=== PATIENT | female | born 2000 | race African-American/Black ===

== ENCOUNTER → 2023-06-22 10:04 | Outpatient (BNV) | payer OTHER, SELFPAY ==
--- NOTE | 2023-06-22 10:04 | MHC.OFFVIS ---
Intake Intake Visit Reasons: Amb Documentation HPI HPI Comments History of Present Illness Details Student here for orientation. no major complaints. 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 she would like to get to [facility] on [address] as that is where her baby goes now and she'd like togo there. she gets her ob care at [facility] and [facility]. PMH:dysmenorrhea - she has really bad cramps and clotting during periods and misses school because of it. the only thing that works is excedrin which she uses also for migraines. (discussed caffeine and she laughs because she was sooo jittery the other day and didn;t know why). she states that she is a caffeine addict and when she misses a coffee she can get a headache and she also needs glasses so taht doesn't help anything. otherwise her health is good - eczema - but not from allergies, just happens - does wash her hands a lot and dishwater aggravates (teaching done) she used to take long showers but realized that doesnt help. CONTROL.she has a prescription in the pharmacy for [patches but she hasn't picked it up yet so we explored her desire not to get - that is not a big issue, she mostly wanted it for period managment - she'd like to get on it to stop her period, but feels conflicted about hormone use and feels like people get issues on hormones (mom got ovarian cyst). she doesn't have a lot of sex (partner of almost a year - is ok w/ that - 'he understands ). she prefers other things like painting, and reading. so they don't have a lot of sex, he occasionally wears a condom, but mostly she feels that it wouldnt be terrible if she got . she'd like to get ged first and to be able to live independently (currently at her moms') but that it would be ok MOOD it's ok ...she has anxiety about time but no real struggles w/ her mood. life -it happens don't stress over things you can't control. Her childhood was good. . 4 year old girl Amelia is in good health - consdiered on the spectrum, for limited verbal, sensory issues, food issues - asked if she herself expereiences any of that and she laughs oh negrita states she also has sensory issues and food safe food issues - LIVING: lives w/ her mother and brother and daughter. this situation is good. she seems close to her mother and mother seems to offer good support. [facility] Medical History (Updated 06/22/23 @ 10:16 by ARJUN Mendiola) Primary dysmenorrhea Hx of migraines Family History (Updated 06/22/23 @ 10:18 by ARJUN Mendiola) Mother Diabetes Cardiovascular disease Father History of substance abuse Brother ADHD Daughter Autism spectrum Review of Systems Const Details: Counseling visit: All systems reviewed & are unremarkable except as noted in HPI and below Reports as per HPI Resp Reports as per HPI GI Reports as per HPI Musc Reports as per HPI Neuro Reports as per HPI Psych Reports as per HPI Physical Exam Const General: cooperative, healthy appearing and no acute distress Nutritional Appearance: well nourished Orientation/consciousness: oriented to person Limitations: no limitations HEENT Other: wnl Eyes Other: wnl Chest Other: easy breathing Resp Effort & Inspection: able to speak in complete sentences Skin Other: normal in appearance Neuro General: oriented to person Psych Other: see HPI Mental Status: mental status grossly normal Speech and movement: Clear speech present Attitude: cooperative Thought process: Normal thought process present Assessment & Plan Assessment & Plan (1) Primary dysmenorrhea: Code(s): N94.4 - Primary dysmenorrhea (2) control counseling: Code(s): Z30.09 - Encounter for other general counseling and advice on contraception (3) Hx of migraines: Code(s): Z86.69 - Personal history of other diseases of the nervous system and sense organs Plan PLAN 1) extensivei counseling re: control use, dysmenorrhea prevention and treatment (comparing excedrin to asa/acetamenophin doses w/o caffeine) 2)autism spectrum counseling for both her and daughter 3) assistance w/ Fixed - Parking Tickets and getting PCP 4)general educational support Coding Level of Care Code New Pt Level 4 (30946) Diagnoses Primary dysmenorrhea N94.4 control counseling Z30.09 Hx of migraines Z86.69 Time Spent (min) 50 Comment couseling and coord w/ onsite counselor
--- NOTE | 2023-06-22 10:25 | MHC.OFFVIS ---
Intake Intake Visit Reasons: Amb Documentation HPI HPI Comments History of Present Illness Details I forgot to chart the questionnaires. [facility] Medical History (Updated 06/22/23 @ 10:16 by ARJUN Mendiola) Primary dysmenorrhea Hx of migraines Family History (Updated 06/22/23 @ 10:18 by ARJUN Mendiola) Mother Diabetes Cardiovascular disease Father History of substance abuse Brother ADHD Daughter Autism spectrum Questionnaire PHQ-9 Over the last 2 weeks, how often have you been bothered by any of the following problems? 1. Little interest or pleasure in doing things: several days 2. Feeling down, depressed, or hopeless: not at all 3. Trouble falling or staying asleep, or sleeping too much: several days 4. Feeling tired or having little energy: several days 5. Poor appetite or overeating: not at all 6. Feeling bad about yourself - or that you are a failure or have let yourself or your family down: not at all 7. Trouble concentrating on things, such as reading the newspaper or watching television: not at all 8. Moving or speaking so slowly that other people could have noticed. Or the opposite - being so fidgety or restless that you have been moving around a lot more than usual: not at all 9. Thoughts that you would be better off or of hurting yourself in some way: not at all Total score: 3 Depression Screening Interpretation: Negative (young mother) Depression Screening Done: Yes 02919 - PHQ-9 Billing: Yes Source: Developed by Drs. Kunal Valle, Natali Liriano, Alejandro Broussard and colleagues, with an educational ambrose from As Seen on TV. CRAFFT Screening Tool PART A: In the PAST 12 MONTHS, did you: Drink any alcohol (more than few sips)? (Do not count sips of alcohol taken during family or gnosticist events.): No Smoke any marijuana or hashish?: No Use anything else to get high? (includes illegal drugs, over the counter/prescription drugs, or things that you sniff/flores?): No PART B: If answered YES to ANY above: Have you ever been in a CAR driven by someone (including yourself) who was high or had been using alcohol or drugs?: No Do you ever use alcohol or drugs to RELAX, feel better about yourself, or fit in?: No Do you ever use alcohol or drugs while you are by yourself, or ALONE?: No Do you ever FORGET things while using alcohol or drugs?: No Do your FAMILY or FRIENDS ever tell you that you should cut down on your drinking or drug use?: No Have you ever gotten into TROUBLE while you were using alcohol or drugs?: No CRAFFT Assessment Charge Crafft: MARIANA [id number] Review of Systems Const Details: Counseling visit: All systems reviewed & are unremarkable except as noted in HPI and below Reports as per HPI Resp Reports as per HPI GI Reports as per HPI Musc Reports as per HPI Neuro Reports as per HPI Psych Reports as per HPI Physical Exam Const General: cooperative, healthy appearing and no acute distress Nutritional Appearance: well nourished Orientation/consciousness: oriented to person Limitations: no limitations HEENT Other: wnl Eyes Other: wnl Chest Other: easy breathing Resp Effort & Inspection: able to speak in complete sentences Skin Other: normal in appearance Neuro General: oriented to person Psych Other: see HPI Mental Status: mental status grossly normal Speech and movement: Clear speech present Attitude: cooperative Thought process: Normal thought process present Assessment & Plan Assessment & Plan (1) Primary dysmenorrhea: Code(s): N94.4 - Primary dysmenorrhea (2) control counseling: Code(s): Z30.09 - Encounter for other general counseling and advice on contraception (3) Hx of migraines: Code(s): Z86.69 - Personal history of other diseases of the nervous system and sense organs Plan plan as before (added to visit) - no intervention needed for mood nor substance use Quality Reporting (2019) Depression/Bipolar (159/160/161/177) PHQ-9: Total score: 3 Coding Level of Care Code New Pt Level 4 (27320) Diagnoses Primary dysmenorrhea N94.4 control counseling Z30.09 Hx of migraines Z86.69 Additional Codes CRAFFT Assessment Charge - Divinet: MARIANA [id number] ([id number])
== END ==
PROVIDERS: Visit Provider Nurse Practitioner Family
DX: N94.4 Primary dysmenorrhea (principal); Z30.09 Encounter for other general counseling and advice on contraception; Z86.69 Personal history of other diseases of the nervous system and sense organs; Z13.30 Encounter for screening examination for mental health and behavioral disorders, unspecified
CPT/HCPCS: 96160; 99204

== ENCOUNTER → 2023-10-24 10:36 | Outpatient (BNV) | payer OTHER, SELFPAY ==
--- NOTE | 2023-10-24 10:36 | MHC.OFFVIS ---
Intake Visit Reasons: Amb Documentation HPI Comments Details: student stops in to ask about a lesion on her hand. dx: wart under callus on right base of pinky finger. darkened but seems just callus not actually colored darkly. she states that it started about 2 years ago and started as a callus (I suspect this was actually a wart that looked like callus) and then got bigger. not bothersome at all. [facility] Medical History (Updated 10/24/23 @ 10:45 by ARJUN Mendiola) Primary dysmenorrhea Hx of migraines Family History (Updated 06/22/23 @ 10:18 by ARJUN Mendiola) Mother Diabetes Cardiovascular disease Father History of substance abuse Brother ADHD Daughter Autism spectrum Review of Systems Const All systems reviewed & are unremarkable except as noted in HPI and below Reports as per HPI Resp Reports as per HPI GI Reports as per HPI Musc Reports as per HPI Neuro Reports as per HPI Psych Reports as per HPI Physical Exam Const General: cooperative, healthy appearing and no acute distress Nutritional Appearance: well nourished Orientation/consciousness: oriented to person Limitations: no limitations HEENT Other: wnl Eyes Other: wnl Chest Other: easy breathing Resp Effort & Inspection: able to speak in complete sentences Skin Other: right base of pinky finger w/ 2 cm raised callus w/ what appears to be a wart under neath it Neuro General: oriented to person Psych Other: see HPI Mental Status: mental status grossly normal Speech and movement: Clear speech present Attitude: cooperative Thought process: Normal thought process present Assessment & Plan Assessment & Plan (1) Wart of hand: Code(s): B07.9 - Viral wart, unspecified Category: Medical Plan discussed at length - can scrape and use compound w but if not bother some can just leave it alone and it may clear on it's own Coding Level of Care Code Est Pt Level 2 (69925) Diagnoses Wart of hand B07.9 Time Spent (min) 15 Comment education and counseling
== END ==
PROVIDERS: Visit Provider Nurse Practitioner Family
DX: B07.9 Viral wart, unspecified (principal)
CPT/HCPCS: 99212

== ENCOUNTER 2024-08-29 13:20 | Emergency (ER) | payer OTHER, SELFPAY ==
[2024-08-29 13:40] VITALS: BP 107/55; BP 152/81; PULSE 47; PULSE 56; RESP 16; TEMP 36.4; O2SAT 100; O2SAT 98; BMI 20.8
[2024-08-29 13:53] VITALS: BP 107/55; PULSE 47; RESP 16; TEMP 36.4; O2SAT 100
--- NOTE | 2024-08-29 14:04 | ED_ITS ---
HPI - General Adult General Chief complaint: General Medical Stated complaint: HANGOVER SX S/P DRINKING UNTILEARLY AM PER EMS Time Seen by Provider: 08/29/24 14:00 Source: patient and other (boyfriend at bedside ) Mode of arrival: EMS Limitations: no limitations History of Present Illness ED Provider: MEGAN TAYLOR narrative: 23 year-old female with PMHx of migraines presents to the ED with concerns of headache and abdominal pain after drinking alcohol last night (08/28). She states she drank 2 200ml bottles of tequila last night and woke up this morning with an intense headache, nausea and vomiting. She explains she does not usually drink that much alcohol in a sitting and has never experienced a hangover before. Her boyfriend who is at the bedside reports she has had approximately 15 episodes of clear fluid vomiting with no signs of bloody emesis. She reports taking Tylenol for her headache but vomited immediately after taking the medication. She denies chest pain, SOB, black/bloody stools, diarrhea, weakness or visual changes. Denies chance of . No urinary symptoms. No other complaints or concerns at this time. MD complaint: nausea/vomiting Onset (ago): hour(s) (last night) Location: head and abdomen (nausea/vomiting ) Severity: moderate Quality: constant Pain Consistency: constant Relieving factors: none Exacerbating factors: none Associated symptoms: nausea/vomiting Treatments prior to arrival: other (acetaminophen) Related Data Allergies Allergy/AdvReac Type Severity Reaction Status Date / Time No Known Allergies Allergy Verified 08/29/24 13:52 Review of Systems 2 Review of Systems: Constitutional: No Weight loss, No Fever, No Chills, No Night Sweats, No Fatigue, No Malaise ENT/Mouth: No Hearing loss, No Ear Pain, No Nasal Congestion, No Sinus Pain, No Hoarseness, No sore throat, No Rhinorrhea, No Swallowing Difficulty Eyes: No Eye Pain, No Swelling, No Redness, No Foreign Body, No Discharge, No Vision Changes Cardiovascular: No Chest Pain, No SOB, No Dyspnea on Exertion, No Orthopnea, No Edema, No Palpitations Respiratory: No Cough, No Sputum, No Wheezing, No Smoke Exposure, No Dyspnea Gastrointestinal: + Nausea, + Vomiting, No Diarrhea, No Constipation, No Abdominal pain, No Hematochezia, No Melena Genitourinary: No irregular bleeding, No Dysuria, No Urinary Frequency, No Hematuria, No Urinary Incontinence/retention, No Urgency, No Flank Pain, No Urinary Flow Changes, No Hesitancy Musculoskeletal: No joint pain, No Myalgias, No Joint Swelling Skin: No Skin Lesions, No rash Neuro: No Weakness, No Numbness, No Paresthesias, No Loss of Consciousness, No Dizziness, + Headache Psych: No Anxiety/Panic, No Depression, No SI/HI/AH/VH, No Social Issues, Heme/Lymph: No Bruising, No Bleeding,No Lymphadenopathy Endocrine: No Polyuria, No Polydipsia, No Temperature Intolerance Yes all other systems are reviewed and are negative [facility] Past Medical History Attestation statement: The following information was validated with the patient. Source: old records reviewed Medical History Primary dysmenorrhea Hx of migraines Family History Family History Mother Diabetes Cardiovascular disease Father History of substance abuse Brother ADHD Daughter Autism spectrum Social History Social History Alcohol intake: current Alcohol intake frequency: holidays/special occasions only Alcohol type: hard liquor Smoked in Last 30 Days: Yes Use of substances other than those prescribed or required for medical reasons: Yes Substance Use Type: Marijuana Substance Use Frequency: Daily Last Used Substance: Days (ago) Any prior treatment program specific to substance use: No Advance Directives: No Advance Directives Information Provided: Yes Do you have a plan to hurt others: No Plan Patient : No Physical Exam ED Vital Signs: Vital Signs - 24 hr 08/29/24 13:40 08/29/24 13:53 08/29/24 15:02 Temperature 97.6 F 97.6 F 98.3 F Pulse Rate 47 L 47 L 55 Respiratory Rate 16 16 15 Blood Pressure 107/55 L 107/55 L 106/70 Pulse Oximetry 100 100 98 Oxygen Delivery Method Room Air Room Air Room Air 08/29/24 16:48 08/29/24 16:54 Temperature 98.3 F 98.3 F Pulse Rate 61 61 Respiratory Rate 15 15 Blood Pressure 105/61 105/61 Pulse Oximetry 97 97 Oxygen Delivery Method Room Air Room Air BMI result Body Mass Index 20.8 Appearance: Alert. Oriented X3. No acute distress. Eyes: Pupils equal, round and reactive to light. ENT: Pharynx normal. Neck: Normal inspection. Neck supple. CVS: Bradycardic heart rate and normal rhythm. Pulses normal. Respiratory: No respiratory distress. Breath sounds normal. Abdomen: Soft and nontender. +BS x4 Skin: Skin warm and dry. Normal skin color. Normal skin turgor. No rashes. Extremities: No lower extremity edema. Neuro: Oriented X 3. No motor deficit. No sensory deficit. CN II-XII intact. Medications Administered Discontinued Medications Generic Name Dose Route Start Last Admin Trade Name Freq PRN Reason Stop Dose Admin Lactated Ringer's 1,000 mls @ 999 mls/hr 08/29/24 14:15 08/29/24 16:02 Lr IV 08/29/24 15:15 Infused .Q1H1M MARKOS Infusion Ondansetron HCl 4 mg 08/29/24 14:09 08/29/24 14:32 Ondansetron Hcl 4 Mg/2 Ml Vial IVPUSH 08/29/24 14:10 4 mg ONCE ONE Administration Medical Decision Making Medical Decision Making MDM Narrative: 23 year-old female with PMHx of migraines presents to the ED with concerns of headache and abdominal pain after drinking alcohol last night (08/28). She states she drank 2 200ml bottles of tequila last night and woke up this morning with an intense headache, nausea and vomiting. She explains she does not usually drink that much alcohol in a sitting and has never experienced a hangover before. Her boyfriend who is at the bedside reports she has had approximately 15 episodes of clear fluid vomiting with no signs of bloody emesis. She denies recent illness, sick contacts, chest pain, SOB, black/bloody stools, diarrhea, weakness or visual changes. Patient vital signs reveal bradycardic heart rate at 47 BPM. Patient is stable in no acute distress and is non-toxic appearing. Will obtain labs to observe for electrolyte abnormality and serum HCG to ensure she is not . Will start IV fluids to hydrate patient and give ondansetron for nausea management. At this time suspect patient is experiencing symptoms due to having a hangover from excessive drinking last night. She is not focally tender on abdominal exam, she is not experiencing aura, photophobia or focal neurological deficits with headache. Will rehydrate patient, manage nausea and observe for improvement. COURSE 16:41- Labs reveal elevated AST/ALT 43/32 most likely due to excessive alcohol consumption the night before with no other abnormalities noted. UA revealed concentrated urine with 2+ protein, and small 1+ leukocyte esterase with 3-5 squamous epithelial cells. This is likely due to contaminated specimen but patient will be called if microscopy suggests UTI, patient is asymptomatic. Her headache, nausea and vomiting is much improved after recieving IV fluids, ondansetron and rest. She was eating and drinking without difficulty. She feels comfortable at this time to discharge home for self care. Patient counseled on safe alcohol consumption habits. Differential Diagnosis Differential Diagnoses: The differential diagnosis associated with the presentation includes alcohol intoxication, alcohol withdrawal, migraine, dehydration, electrolyte abnormality, Admission/Observation Consideration of admission/observation: Escalation of care including admission/observation considered Lab Data [facility] Lab Attestation statement: I reviewed the patient's lab results. Patient does have slight leukocytosis at 13.1, likely reactive, see [facility] for further notes. 08/29/24 14:30 08/29/24 15:15 Labs: Lab Results 08/29/24 08/29/24 Range/Units 14:30 15:15 WBC 13.1 H (4.8-10.8) X10*3/uL RBC 4.68 (4.20-5.50) X10*6/uL Hgb 14.3 (12.0-16.0) g/dl Hct 42.1 (37.0-47.0) % MCV 90.0 (80.0-98.0) fL MCH 30.6 (27.0-33.0) pg MCHC 34.0 (31.0-35.0) g/dl RDW 13.6 (11.0-16.0) % Plt Count 321 (160-400) X10*3/uL MPV 8.8 L (9.4-12.3) fL Immature Gran % (Auto) 0.4 (0.0-0.4) % Neut % (Auto) 82.8 H (45-73) % Lymph % (Auto) 12.5 L (20-40) % [place] % (Auto) 3.7 (2-11) % Eos % (Auto) 0.1 (0-4) % Baso % (Auto) 0.5 (0-2) % Lymph # (Auto) 1.6 (1.2-4.9) X10*3/uL [place] # (Auto) 0.5 (0.1-1.2) X10*3/uL Eos # (Auto) 0.0 (0.0-0.4) X10*3/uL Baso # (Auto) 0.1 (0.0-0.2) X10*3/uL Abs Immat Gran (auto) 0.05 H (0.00-0.03) X10*3/uL Absolute Neuts (auto) 10.8 H (2.0-8.3) x10*3/uL Absolute Nucleated RBC 0.000 (0.0-0.012) X10*3/uL Nucleated RBC % (auto) 0.0 (0.0-0.2) /100WBC Sodium 143 (135-145) mmol/L Potassium 4.3 (3.3-5.1) mmol/L Chloride 110 H (96-108) mmol/L Carbon Dioxide 26 (22-29) mmol/L Anion Gap 11 L (12-20) BUN 11 (9-16) mg/dL Creatinine 0.67 (0.5-1.4) mg/dL Estim Creat Clear Calc 118.8 Estimated GFR > 60 Random Glucose 99 (60-115) mg/dL Calcium 9.4 (8.4-10.2) mg/dL Magnesium 1.9 (1.6-2.6) mg/dL Total Bilirubin 0.4 (0.0-1.0) mg/dL AST 43 H (5-31) U/L ALT 32 H (0-31) U/L Alkaline Phosphatase 74 (39-117) U/L Total Protein 6.8 (6.5-8.0) g/dL Albumin 4.1 (3.5-5.0) g/dL Beta HCG, Quant < 2 mIU/mL Urine Color Dark Yellow Urine Appearance Clear Urine pH 7.0 (5.0-9.0) Ur Specific Carpenter >= 1.030 H (1.005-1.025) Urine Protein 100 (2+) H (Neg-Trace) mg/dL Urine Glucose (UA) Negative (Negative) mg/dL Urine Ketones 15 (Negative) mg/dL Urine Blood Negative (Negative) Urine Nitrite Negative (Negative) Ur Leukocyte Esterase Small (1+) H (Negative) Urine RBC 0-2 (0-2) /HPF Urine WBC 0-5 (0-5) /HPF Ur Squamous Epith Cells 3-5 (0-2) /HPF Urine Bacteria Trace (None Seen) Hyaline Casts 0-2 (0-2) /LPF Independent Historian Clinical information obtained from an independent historian. History obtained from or confirmed by: Other (boyfriend at bedside ) External Record Review External record reviewed: Inpatient record Discharge Plan Discharge Clinical Impression: Hangover Qualifiers: Complication of substance-induced condition: uncomplicated Qualified Code(s): F 10.120 - Alcohol abuse with intoxication, uncomplicated Patient Disposition: Home, Self-Care Instructions: Alcohol Intoxication (ED), At-Risk Alcohol Use (ED) Additional Instructions: You were evaluated in the ED today due to nausea, vomiting, and headache due to alcohol consumption. Your labs were reassuring and did not show any abnormalities. Your UA showed small amounts of white blood cells and skin cells. This could be due to a contaminated urine due to skin cells. You will be called by the hospital if you need to be started on antibiotics. Limit your alcohol intake to prevent illness or dependence on alcohol from occurring due to drinking. If any new or worsening symptoms occur not limited to chest pain or shortness for breath, please seek emergent care. Interventions: ED Discharge Assessment Last Done: 08/29/24 16:54 Discharge Date/Time: 08/29/24 17:36 Print Language: Kittitian
[2024-08-29] MEDS: Lactated Ringers 1,000 ML 999 ML IV (14:32)
[2024-08-29] MEDS: ondansetron HCL 4 MG/2 ML VIAL IVPUSH (14:32)
[2024-08-29 14:34] LABS: Basophils Absolute Auto 0.1 X10*3/uL (0.0-0.2); Basophils Percent Auto 0.5 % (0-2); Eosinophils Percent Auto 0.1 % (0-4); Hematocrit 42.1 % (37.0-47.0); Hemoglobin 14.3 g/dl (12.0-16.0); Imm Gran Abs Auto 0.05 X10*3/uL (0.00-0.03); Imm Gran Pct Auto 0.4 % (0.0-0.4); Lymphocytes Absolute Auto 1.6 X10*3/uL (1.2-4.9); Lymphocytes Percent Auto 12.5 % (20-40); MANUAL DIFF FLAG NO; Mean Corpuscular Hemoglobin 30.6 pg (27.0-33.0); Mean Platelet Volume 8.8 fL (9.4-12.3); Monocytes Absolute Auto 0.5 X10*3/uL (0.1-1.2); Monocytes Percent Auto 3.7 % (2-11); Neutrophils Absolute Auto 10.8 x10*3/uL (2.0-8.3); Neutrophils Percent Auto 82.8 % (45-73); Platelet Count 321 X10*3/uL (160-400); Red Blood Count 4.68 X10*6/uL (4.20-5.50); Red Cell Distribution Width 13.6 % (11.0-16.0); White Blood Count 13.1 X10*3/uL (4.8-10.8)
[2024-08-29 14:38] LABS: Appearance Urine Clear; Color Urine Dark Yellow; Glucose Urine UA Negative (Negative); Leukocyte Esterase Urine Small (1+) (Negative); Nitrite Urine Negative (Negative); Specific Gravity - Urine >= 1.030 (1.005-1.025); UMIC TRIGGER UACC YES; Urine Blood Negative (Negative); Urine Ketones 15 mg/dL (Negative); Urine Protein 100 (2+) mg/dL (Neg-Trace)
[2024-08-29 14:46] LABS: Bacteria Urine Trace (None Seen); Hyaline Casts Urine 0-2 /LPF (0-2); RBC Urine 0-2 /HPF (0-2); UACC Culture Trigger YES; WBC Urine 0-5 /HPF (0-5)
[2024-08-29 15:02] VITALS: BP 106/70; PULSE 55; RESP 15; TEMP 36.8; O2SAT 98
[2024-08-29 15:54] LABS: Alanine Aminotransferase 32 U/L (0-31); Albumin Level 4.1 g/dL (3.5-5.0); Anion Gap 11 (12-20); Aspartate Amino Transferase 43 U/L (5-31); Bilirubin Total 0.4 mg/dL (0.0-1.0); Blood Urea Nitrogen 11 mg/dL (9-16); Calcium 9.4 mg/dL (8.4-10.2); Carbon Dioxide 26 mmol/L (22-29); Chloride 110 mmol/L (96-108); Creatinine Clr Calc Pharmacy 118.8; Estimated Glomerular Filt Rate > 60; Glucose Random 99 mg/dL (60-115); HCG Quantitative < 2 mIU/mL; Magnesium 1.9 mg/dL (1.6-2.6); Potassium 4.3 mmol/L (3.3-5.1); Sodium 143 mmol/L (135-145); Total Protein 6.8 g/dL (6.5-8.0)
[2024-08-29 16:23] LABS: Alkaline Phosphatase 74 U/L (39-117)
[2024-08-29 16:48] VITALS: BP 105/61; PULSE 61; RESP 15; TEMP 36.8; O2SAT 97
--- NOTE | 2024-08-29 16:49 | PC.NURSE ---
Patient c/o of n/v zofran given with good effect, Patient states im feeling much better now . Patient received 1 liter IV LR. Patient denies pain at this time. No further vomiting noted
[2024-08-29 16:54] VITALS: BP 105/61; PULSE 61; RESP 15; TEMP 36.8; O2SAT 97
== END 2024-08-29 17:36 | disposition home or self-care (01) ==
PROVIDERS: Physician Assistant Medical; Emergency Provider Emergency Medicine; PCP Nurse Practitioner Pediatrics
DX: F10.120 Alcohol abuse with intoxication, uncomplicated (principal); Y90.9 Presence of alcohol in blood, level not specified; R51.9 Headache, unspecified
CPT/HCPCS: 36415; 80053; 81001; 83735; 84702; 85025; 87086; 87147; 96361; 96374; 99284; J2405; J7120

== ENCOUNTER 2024-12-12 18:43 | Emergency (ER) | payer SELFPAY ==
--- NOTE | 2024-12-12 18:51 | ED.GENADULT ---
HPI - General Adult General Chief complaint: Dental/Oral Stated complaint: tooth pain Time Seen by Provider: 12/12/24 19:00 Source: patient, RN notes reviewed and old records reviewed Mode of arrival: ambulatory Limitations: no limitations History of Present Illness ED Provider: St[facility] narrative: Patient is a 24-year-old female presenting to the ED with complaint of fractured tooth 2 days ago, states she called her dentist, cannot be seen until January. Denies any discharge, drainage, fevers, or difficulty swallowing. Taking ibuprofen without relief. MD complaint: dental pain Onset (ago): day(s) Related Data Previous Rx's ?Medication ?Instructions ?Recorded oxycodone 5 mg tablet 5 mg PO Q8H PRN severe pain (scale 12/12/24 score 7-10) #9 tabs Allergies Allergy/AdvReac Type Severity Reaction Status Date / Time No Known Allergies Allergy Verified 12/12/24 18:55 Review of Systems Review of Systems: As per HPI Yes all other systems are reviewed and are negative Constitutional: Constitutional: Reports as per HPI PMFSH Past Medical History Medical History Primary dysmenorrhea Hx of migraines Family History Family History Mother Diabetes Cardiovascular disease Father History of substance abuse Brother ADHD Daughter Autism spectrum Social History Social History Alcohol intake: current Alcohol intake frequency: holidays/special occasions only Alcohol type: hard liquor Substance Use Type: Marijuana Physical Exam ED Vital Signs: Vital Signs - 24 hr 12/12/24 18:53 Temperature 98.3 F Pulse Rate 59 Respiratory Rate 18 Blood Pressure 135/94 H Pulse Oximetry 98 BMI result Body Mass Index 21.3 Vital signs have been reviewed and appear to be correct. Blood pressure normal. Heart rate normal. Respiratory rate normal. Temperature normal. Oxygen saturation normal. Const General: cooperative, healthy appearing and no acute distress Orientation/consciousness: oriented to person, oriented to place, oriented to time and patient oriented x3 Limitations: no limitations HENMT Head: Yes normocephalic and Yes atraumatic Ears: external ears normal General nose exam: Normal external nose present Face and sinus: Yes face symmetric Mouth: oropharynx normal, moist mucous membranes, no audible dysphonia, no drooling and no trismus Teeth image:  1. fractured tooth, no gingival edema, erythema, drainage or fluctuance Throat: Yes posterior oropharynx normal and Yes uvula midline Eyes Pupils: Equal, round and reactive pupils present Neck Neck: Yes normal visual inspection, Yes no lymphadenopathy and Yes supple Resp Effort & Inspection: normal respiratory effort and able to speak in complete sentences Auscultation: clear to auscultation bilaterally Cardio Rate: regular rate Rhythm: regular rhythm Heart sounds: S1 normal heart sound present and S2 normal heart sound present GI Palpation (GI): Soft to palpation and nontender Auscultation: normoactive bowel sounds General: Yes no CVA tenderness Back/Spine/Pelvis Back: no CVA tenderness Skin General skin exam: elasticity normal and turgor normal Neuro General: oriented to person, oriented to place, oriented to time, patient oriented x3, moves all extremities, no focal motor deficits and CN's II-XI intact bilaterally Cranial nerves: Yes Equal, round and reactive pupils present Cognition (Neuro): normal cognition Extrem General: Yes full ROM, Yes no pedal edema and Yes no calf tenderness Psych Mental Status: mental status grossly normal Affect: normal affect Thought process: Normal thought process present Medical Decision Making Medical Decision Making MDM Narrative: Patient is a 24-year-old female presenting to the ED with complaint of fractured tooth 2 days ago, states she called her dentist, cannot be seen until January. On exam patient is awake, A+Ox3, VS WNL, afebrile, normal neurological exam without focal deficits, physical exam findings as above. Given reported symptoms and physical exam findings, initial differential includes but is not limited to toothache, fractured tooth. Do not suspect infection, abscess. Will send prescription for oxycodone for severe pain, patient provided with list of local dental clinics and advised to call several offices to see who can give her the soonest appointment. Return precautions discussed. Patient verbalized understanding of and agreement with plan. Differential Diagnosis Differential Diagnoses: The differential diagnosis associated with the presentation includes As per MDM Admission/Observation Consideration of admission/observation: Escalation of care including admission/observation considered Patient would have been admitted to the hospital had their clinical presentation warranted hospital admission. External Record Review External record reviewed: Inpatient record, Office record and Outpatient record Prescription Management I considered prescription management with: Pain Medication Discharge Plan Discharge Clinical Impression: Toothache, Fracture of tooth Patient Disposition: Home, Self-Care Instructions: Toothache (ED) Additional Instructions: You were evaluated in the emergency department today for complaint of dental pain and fractured tooth. IT IS IMPORTANT THAT YOU FOLLOW UP WITH A DENTIST. Call the dentists on the list of dental clinics to see who has the soonest appointment. We recommend that you take 600 mg of ibuprofen or 650 mg Tylenol every 6 hours as needed for pain. If necessary, you can alternate these medications every 3 hours. For example, at 9:00 a.m. take Tylenol, then at noon take ibuprofen, then at 3:00 p.m. take Tylenol, etc.. DO NOT TAKE MORE THAN THAT. You are being prescribed a short course of oxycodone for severe pain. Do not take this medication with alcohol as it can cause excessive drowsiness. Return to the emergency department if you develop worsening pain, swelling, difficulty swallowing, difficulty breathing, fever, or any other concerning symptoms. Call or visit any of the clinics below to establish care with a dentist: [facility] [address] [place] [address] [facility] [[email or web address] [address] [facility], [address] [address] [place] [id number] [facility] [address] [place] [id number] [facility] [address] [place] [address] [address] [place] [address] Prescriptions: New oxycodone 5 mg tablet 5 mg PO Q8H PRN (Reason: severe pain (scale score 7-10)) Qty: 9 0RF Rx Instructions: Partial Fill upon patient request. Print Language: Citizen Of [place]
[2024-12-12 18:53] VITALS: BP 135/94; PULSE 59; RESP 18; TEMP 36.8; O2SAT 98; BMI 21.3
[2024-12-12 19:07] VITALS: BP 135/94; PULSE 59; RESP 18; TEMP 36.8; O2SAT 98
== END 2024-12-12 19:08 | disposition home or self-care (01) ==
PROVIDERS: Emergency Provider Emergency Medicine; PCP Nurse Practitioner Pediatrics
DX: S02.5XXA Fracture of tooth (traumatic), initial encounter for closed fracture (principal); X58.XXXA Exposure to other specified factors, initial encounter; Y93.89 Activity, other specified; Y92.89 Other specified places as the place of occurrence of the external cause; Y99.8 Other external cause status
CPT/HCPCS: 99282; 99283

== ENCOUNTER 2024-12-13 01:58 | Emergency (ER) | payer SELFPAY ==
[2024-12-13 02:04] VITALS: BP 154/93; PULSE 54; RESP 20; TEMP 36.7; O2SAT 99; BMI 21.3
--- NOTE | 2024-12-13 04:30 | ED_ITS ---
HPI - Dental/Oral General Chief complaint: Dental/Oral Stated complaint: tooth pain- seen yesterday for same thing Time Seen by Provider: 12/13/24 04:29 Source: patient Mode of arrival: ambulatory Limitations: no limitations History of Present Illness ED Provider: [facility] HPI Narrative: The patient is a 24-year-old female presenting to the ED reporting she was seen here yesterday for evaluation of pain in the left lower molar due to a cracked tooth. Patient was prescribed oxycodone and advised to follow up with her dentist, patient states she is unable to see a dentist until January, returns to the ED with severe pain stating she attempted the oxycodone but felt no relief, patient reports she has also been attempting ibuprofen and Excedrin migraine. The patient denies associated fever/chills, nausea, vomiting, or other acute complaint. Related Data Previous Rx's ?Medication ?Instructions ?Recorded oxycodone 5 mg tablet 5 mg PO Q8H PRN severe pain (scale 12/12/24 score 7-10) #9 tabs acetaminophen 500 mg capsule 1,000 mg (2 x 500 mg) PO .q8 PRN 12/13/24 fever or pain #30 caps amoxicillin 875 mg-potassium 1 tab PO Q12H #20 tabs clavulanate 125 mg tablet ibuprofen 600 mg tablet 600 mg PO Q8H PRN fever or p ain 12/13/24 #30 tabs Allergies Allergy/AdvReac Type Severity Reaction Status Date / Time No Known Allergies Allergy Verified 12/13/24 02:08 Review of Systems Review of Systems: Yes all other systems are reviewed and are negative [facility] Past Medical History Medical History Primary dysmenorrhea Hx of migraines Family History Family History Mother Diabetes Cardiovascular disease Father History of substance abuse Brother ADHD Daughter Autism spectrum Social History Social History Alcohol intake: current Alcohol intake frequency: holidays/special occasions only Alcohol type: hard liquor Substance Use Type: Marijuana Advance Directives: No Do you have a plan to hurt others: No Plan Physical Exam Vital Signs: Vital Signs: Last Vital Signs Temp 98.1 F 12/13/24 04:46 Pulse 54 12/13/24 04:46 Resp 20 12/13/24 04:46 BP 154/93 H 12/13/24 04:46 Pulse Ox 99 12/13/24 04:46 O2 Del Method Room Air 12/13/24 04:46 BMI result Body Mass Index 21.3 CONSTITUTIONAL: The patient appears non-toxic, well nourished and in no acute distress. Vital signs as documented. HEAD: Atraumatic, normocephalic. EYES: EOMs grossly intact, pupils equal, conjunctiva clear, no exudate. ENT: Nares patent, no discharge. Airway patent, no audible stridor, visible mucosa is pink and moist without noted lesions. There is swelling and tenderness of the gums surrounding the left lower 1st molar, no identifiable drainable abscess. NECK: trachea is midline, no obvious masses or gross abnormalities. CHEST: Symmetric movement, normal appearance. LUNGS: Non-labored work of breathing. CARDIAC: No evidence of hypoperfusion. ABDOMEN: Nondistended, no obvious injury. : Deferred. EXTREMITIES: Moves all extremities spontaneously without reported pain. No obvious injury or deformity noted. NEURO: Alert and oriented x3, CN II-XII appear grossly intact. Cerebellar Functioning grossly intact. Speech clear and appropriate. SKIN: Warm, dry, color appropriate. No rashes or lesions noted. Medications Administered Discontinued Medications Generic Name Dose Route Start Last Admin Trade Name Freq PRN Reason Stop Dose Admin Acetaminophen 975 mg 12/13/24 04:30 12/13/24 04:44 Acetaminophen 325 Mg Tablet PO 12/13/24 04:31 975 mg ONCE ONE Administration Amoxicillin/Clavulanate Potassium 875 mg 12/13/24 04:30 12/13/24 04:45 Amoxicillin/Potassium Clav 875 Mg Tablet PO 12/13/24 04:31 875 mg ONCE ONE Administration Medical Decision Making Medical Decision Making [facility] Narrative: 4:39 AM 12/13/2024 ([facility]): The patient is a 24-year-old female presenting to the ED for evaluation of ongoing dental pain despite attempting oxycodone. Patient's exam shows no drainable abscess, patient will be treated with Augmentin, and we will add on staggered dosing of ibuprofen and Tylenol for baseline pain with oxycodone for breakthrough pain. Discharge Plan Discharge Clinical Impression: Dental caries, Toothache Patient Disposition: Home, Self-Care Instructions: Toothache (ED) Additional Instructions: Thank you for choosing [facility]'s Emergency Department for your care today. At this time there is no indication for admission to the hospital or continued ED observation, and it is safe to discharge you home. Your pain appears to be due to a dental infection, as such we are treating you with Augmentin. Please take this antibiotic as prescribed until it is finished. You may take alternating (staggered) doses of ibuprofen 600mg and Tylenol 1000mg every 4 hours as needed for any additional pain. Please stay well hydrated and get plenty of rest. As a part of your care plan, you were also previously prescribed an opiate based pain medication called oxycodone. Please take this medication only for severe pain that is not relieved by ibuprofen and/or Tylenol. Opiate based medications have a high risk of unintentional addiction and abuse. Take this medication only as directed and only if absolutely necessary. This medicine can make you drowsy, you are not allowed to drive, operate heavy machinery, or be the sole care provider for children while taking this medication. Please follow up with your dentist appointment in January for definitive care. Please also follow up with your primary care physician for re-evaluation, additional management of your symptoms, and continued preventative care. If you do not have a primary care physician, please call the [facility] at [phone] to establish a new primary care physician. While waiting to establish your new primary care physician, you can call our [facility] at [phone] for non-emergency needs. Please return to the emergency department if you develop a severe or sudden change in your symptoms, a fever over 100.4 that does not improve with Tylenol or Ibuprofen, recurrent vomiting, or any other new or worsening symptoms or concerns. Prescriptions: New ibuprofen 600 mg tablet 600 mg PO Q8H PRN (Reason: fever or pain) Qty: 30 0RF acetaminophen 500 mg capsule 1,000 mg PO .q8 PRN (Reason: fever or pain) Qty: 30 0RF amoxicillin-pot clavulanate 875-125 mg tablet 1 tab PO Q12H Qty: 20 0RF No Action oxycodone 5 mg tablet 5 mg PO Q8H PRN (Reason: severe pain (scale score 7-10)) Qty: 9 0RF Rx Instructions: Partial Fill upon patient request. Referrals: Susie Hanley APRN [Primary Care Provider, Pediatrics] Clinical Impression: Toothache Interventions: ED Discharge Assessment Last Done: 12/13/24 04:46 Print Language: Portuguese
--- NOTE | 2024-12-13 04:30 | PC.NURSE ---
Pt was asking to leave, redirected to recliner and encouraged to wait for a provider to be seen. T/w discussing plan to providers, encouraging MD signup when able.
[2024-12-13 04:46] VITALS: BP 154/93; PULSE 54; RESP 20; TEMP 36.7; O2SAT 99
== END 2024-12-13 04:47 | disposition home or self-care (01) ==
PROVIDERS: Emergency Provider Emergency Medicine; PCP Nurse Practitioner Pediatrics
DX: K02.9 Dental caries, unspecified (principal); K08.89 Other specified disorders of teeth and supporting structures
CPT/HCPCS: 99283